=== PATIENT | male | born 1970 | race Caucasian/White ===

== ENCOUNTER 2019-04-06 11:31 | Inpatient (IN) | payer BC ==
[~2019-04-06] VITALS: Ht 190.5 cm; Wt 130.8 kg
[2019-04-06] MEDS ORDERED: DISCOVY (11:48)
[2019-04-06] MEDS ORDERED: DOLU50TA PO (11:48)
[2019-04-06] MEDS ORDERED: APIX5TAB PO (11:48)
[2019-04-06] MEDS ORDERED: CHANTIX (11:48)
[2019-04-06] MEDS ORDERED: VARE1TAB21 PO (11:48)
--- NOTE | 2019-04-06 11:48 | NUR ---
PT TO ED FOR CONSTANT LOWER STERNAL CHEST PAIN AND PRESSURE STARTING 0700. PT HX MULTIPLE DVT AND PE. IV ESTABLISHED EN ROUTE. 324MG ASA AND 1 NITRO TAB ADMINISTERED DIRECTOR SALES WITH NO PAIN RELIEF. PT CONNECTED TO MONITORS. VSS. EKG COMPLETE. DR. BARROSO TO BS FOR ASSESSMENT. AWAITING ORDERS.
[2019-04-06] MEDS ORDERED: MORPHINE SULFATE 4 MG/ML, 1ML ONE (11:54)
--- NOTE | 2019-04-06 11:58 | NUR ---
pt medicated per nov. 2L nc placed for ra sat of 87%. o2 sat recovered to 97%. no needs expressed. call light within reach. xr to bedside. awaiting resutls.
[2019-04-06] MEDS ORDERED: SODIUM CHLORIDE 0.9% 1,000ML IVBOLUS ONE (12:00)
[2019-04-06] MEDS ORDERED: SODIUM CHLORIDE FLUSH 10ML SYR IVF ONE (12:00)
[2019-04-06] MEDS ORDERED: MORPHINE SULFATE 4 MG/ML, 1ML IVPush PRN (12:00)
--- NOTE | 2019-04-06 12:03 | NUR ---
per Sr. Law, ok to take home po meds. otherwise, npo until results are back. pt provided h2o. denies nausea.
[2019-04-06 12:07] LABS: BASOPHILS # (AUTO) 0.03 x10^3/uL (0-0.1); BASOPHILS % (AUTO) 0 % (0-1); EOSINOPHILS # (AUTO) 0.12 x10^3/uL (0-0.4); EOSINOPHILS % (AUTO) 1 % (1-7); LYMPHOCYTES # (AUTO) 2.13 x10^3/uL (1-3.4); LYMPHOCYTES % (AUTO) 15 % (22-44); MD NO; MEAN CORPUSCULAR HEMOGLOBIN 30.4 pg (27.5-34.5); MEAN CORPUSCULAR HGB CONC 33.3 g/dL (33.2-36.2); MEAN CORPUSCULAR VOLUME 91.3 fL (81-97); MEAN PLATELET VOLUME 6.8 fL (7.4-10.4); MONOCYTES # (AUTO) 0.95 x10^3/uL (0.2-0.8); MONOCYTES % (AUTO) 7 % (2-9); NEUTROPHILS # (AUTO) 10.67 x10^3/uL (1.8-6.8); NEUTROPHILS % (AUTO) 77 % (42-75); PLATELET COUNT 314 x10^3/uL (130-400); RED BLOOD COUNT 4.94 x10^6/uL (4.38-5.82)
[2019-04-06 12:17] LABS: INTERNATIONAL NORMALIZED RATIO 1.02 (0.93-1.1); PROTHROMBIN TIME 10.7 Seconds (9.6-11.5)
[2019-04-06 12:19] LABS: ALBUMIN 3.9 g/dL (3.4-5.0); ANION GAP 11 mmol/L (5-15); CALCIUM 8.6 mg/dL (8.5-10.1); CHLORIDE 107 mmol/L (98-107)
[2019-04-06 12:24] LABS: ALANINE AMINOTRANSFERASE 69 U/L (12-78); ALKALINE PHOSPHATASE 41 U/L (45-117); BILIRUBIN,TOTAL 0.7 mg/dL (0.2-1.0); TOTAL PROTEIN 7.7 g/dL (6.4-8.2); TROPONIN I < 0.015 ng/mL (0.000-0.045)
--- NOTE | 2019-04-06 12:38 | NUR ---
PT RESTING IN ROOM. PT STATES NO CHANGE IN CP. VSS. NO NEEDS EXPRESSED. PT TO CT AT THIS TIME.
--- NOTE | 2019-04-06 12:51 | NUR ---
PT UNABLE TO LAY DOWN FOR CT-RN AWARE
[2019-04-06] MEDS ORDERED: HYDROmorphone 1 MG/ML, 1ML VIAL ONE (12:53)
[2019-04-06] MEDS ORDERED: ONDANSETRON 2MG/ML, 2ML ONE (12:53)
--- NOTE | 2019-04-06 12:59 | NUR ---
PT UN ABLE TO TOLERATE LYING FLAT FOR CT. DR. BARROSO AWARE. NEW ORDERS RECEVIED AND MEDICATIONS ADMINISTERED. VSS.
[2019-04-06] MEDS ORDERED: ONDANSETRON 2MG/ML, 2ML IVPush ONE (13:00)
[2019-04-06] MEDS ORDERED: HYDROmorphone 2 MG/ML, 1ML IVPush PRN (13:00)
[2019-04-06] MEDS ORDERED: DIPHENHYDRAMINE 50 MG/ML, 1ML ONE (13:07)
--- NOTE | 2019-04-06 13:20 | NUR ---
pt medicated per nov. pt now states he is able to tolerate lying flat during trials. ct notified and pt to ct at this time.
[2019-04-06] MEDS ORDERED: DIPHENHYDRAMINE 50 MG/ML, 1ML IVPush ONE (13:30)
--- NOTE | 2019-04-06 13:48 | NUR ---
PT RESTING IN ROOM. VSS. US AND CTA COMPLETE. AWAITING RESULTS.
[2019-04-06] MEDS ORDERED: OMNIPAQUE 350 MG/ML, 150 ML BOTTLE ONE (13:53)
[2019-04-06] MEDS ORDERED: KETOROLAC 30 MG/1 ML ONE (14:14)
[2019-04-06] MEDS ORDERED: KETOROLAC 30 MG/1 ML IVPush ONE ×2 (14:30→19:30)
--- NOTE | 2019-04-06 14:32 | NUR ---
PT RESTING IN ROOM. VSS. PLANT O ADMIT. AWAITING ROOM ASSIGNMENT.
[2019-04-06 15:19] VITALS: BP 131/73
[2019-04-06] MEDS ORDERED: EMTR1TAB14 PO (15:52)
[2019-04-06] MEDS ORDERED: SODIUM CHLORIDE 0.9% 1,000 ML IV SCH (17:05)
[2019-04-06 17:22] VITALS: BP 143/87
[2019-04-06] MEDS ORDERED: LORazepam 2 MG/ML, 1ML IVPush PRN (17:30)
[2019-04-06] MEDS ORDERED: NITROGLYCERIN 0.4 MG/SPRAY SL PRN (17:30)
[2019-04-06] MEDS ORDERED: ACETAMINOPHEN 325 MG TABLET PO PRN (17:30)
[2019-04-06] MEDS ORDERED: ONDANSETRON 2MG/ML, 2ML IVPush PRN (17:30)
[2019-04-06] MEDS: morphine SULFATE 10 MG/ML, 1ML IVPush PRN (17:42)
[2019-04-06 17:50] VITALS: BP 132/81
[2019-04-06 17:51] LABS: HCT (SEDRATE) 44.2 % (39.2-51.8)
[2019-04-06] MEDS ORDERED: IBUPROFEN 600 MG TABLET ONE (17:51)
[2019-04-06] MEDS: NITROGLYCERIN 0.4 MG BOTTLE (25 TABS) SL PRN ×2 (17:52→17:58)
[2019-04-06] MEDS ORDERED: IBUPROFEN 200 MG TABLET ONE (17:52)
[2019-04-06] MEDS: IBUPROFEN 200 MG TABLET PO SCH (17:53)
[2019-04-06 17:57] VITALS: BP 124/72
[2019-04-06 17:58] LABS: TROPONIN I < 0.015 ng/mL (0.000-0.045)
[2019-04-06 18:05] VITALS: BP 115/67
[2019-04-06] MEDS ORDERED: HYDROmorphone 1 MG/ML, 1ML INJ IV ONE (18:30)
[2019-04-06 18:38] LABS: AMPHETAMINE SCREEN, URINE Negative (Negative); BARBITURATE SCREEN, URINE Negative (Negative); BENZODIAZEPINE SCREEN, URINE Negative (Negative); CANNABINOID SCREEN, URINE Negative (Negative); COCAINE SCREEN, URINE Negative (Negative); METHADONE SCREEN, URINE Negative (Negative); OPIATE SCREEN, URINE Positive (Negative)
[2019-04-06] MEDS ORDERED: KETOROLAC 30 MG/1 ML IM ONE (19:00)
[2019-04-06 19:32] VITALS: BP 142/82
[2019-04-06] MEDS ORDERED: HYDROmorphone 2 MG/ML, 1ML IV ONE (20:30)
[2019-04-06] MEDS: VARENICLINE 1MG TABLET PO SCH (20:39)
[2019-04-06] MEDS: APIXABAN 5 MG TABLET PO SCH (20:40)
[2019-04-06] MEDS ORDERED: HYDROmorphone 1 MG/ML, 1ML INJ IV PRN (21:00)
[2019-04-06 23:04] LABS: TROPONIN I < 0.015 ng/mL (0.000-0.045)
[2019-04-07 01:44] VITALS: BP 129/80
[2019-04-07 02:05] LABS: MICROSCOPIC AUTO
[2019-04-07 02:06] LABS: CULTURE INDICATED? YES
[2019-04-07] MEDS: HYDROmorphone 2 MG/ML, 1ML IV PRN ×4 (05:20→21:25)
[2019-04-07 05:50] LABS: BASOPHILS # (AUTO) 0.04 x10^3/uL (0-0.1); BASOPHILS % (AUTO) 0 % (0-1); EOSINOPHILS # (AUTO) 0.25 x10^3/uL (0-0.4); EOSINOPHILS % (AUTO) 2 % (1-7); LYMPHOCYTES # (AUTO) 2.73 x10^3/uL (1-3.4); LYMPHOCYTES % (AUTO) 25 % (22-44); MD NO; MEAN CORPUSCULAR HEMOGLOBIN 30.9 pg (27.5-34.5); MEAN CORPUSCULAR HGB CONC 33.2 g/dL (33.2-36.2); MEAN CORPUSCULAR VOLUME 93.1 fL (81-97); MEAN PLATELET VOLUME 7.1 fL (7.4-10.4); MONOCYTES # (AUTO) 1.26 x10^3/uL (0.2-0.8); MONOCYTES % (AUTO) 12 % (2-9); NEUTROPHILS # (AUTO) 6.55 x10^3/uL (1.8-6.8); NEUTROPHILS % (AUTO) 60 % (42-75); PLATELET COUNT 227 x10^3/uL (130-400); RED CELL DISTRIBUTION WIDTH 14.3 % (9.4-14.8)
[2019-04-07 05:58] LABS: ALBUMIN 3.3 g/dL (3.4-5.0); ANION GAP 7 mmol/L (5-15); CHLORIDE 108 mmol/L (98-107)
[2019-04-07 06:10] LABS: ALANINE AMINOTRANSFERASE 47 U/L (12-78); ALKALINE PHOSPHATASE 34 U/L (45-117); BILIRUBIN,TOTAL 0.7 mg/dL (0.2-1.0); CREATININE 0.88 mg/dL (0.7-1.3); TOTAL PROTEIN 6.8 g/dL (6.4-8.2)
[2019-04-07 06:51] VITALS: BP 110/71
[2019-04-07] MEDS ORDERED: EMTRICITABINE/TENOFOV ALAFENAM 200-25 TAB PO SCH (09:00)
[2019-04-07] MEDS ORDERED: DOLUTEGRAVIR 50MG TAB PO SCH (09:00)
[2019-04-07] MEDS: VARENICLINE 1MG TABLET PO SCH ×2 (09:05→21:23)
[2019-04-07] MEDS: IBUPROFEN 200 MG TABLET PO SCH ×3 (09:05→21:25)
[2019-04-07] MEDS: APIXABAN 5 MG TABLET PO SCH ×2 (09:05→21:23)
[2019-04-07] MEDS: DOLUTEGRAVIR 50MG TAB PO SCH (11:37)
[2019-04-07] MEDS: EMTRICITABINE/TENOFOV ALAFENAM 200-25 TAB PO SCH (11:37)
[2019-04-07 14:22] VITALS: BP 124/75
[2019-04-07] MEDS: COLCHICINE 0.6 MG CAPSULE PO SCH ×2 (15:40→21:23)
[2019-04-07 18:46] VITALS: BP 126/72
[2019-04-08] MEDS: morphine SULFATE 10 MG/ML, 1ML IVPush PRN ×2 (03:19→21:50)
[2019-04-08 03:28] VITALS: BP 118/73
[2019-04-08 05:06] LABS: BASOPHILS # (AUTO) 0.04 x10^3/uL (0-0.1); BASOPHILS % (AUTO) 1 % (0-1); EOSINOPHILS % (AUTO) 10 % (1-7); LYMPHOCYTES # (AUTO) 2.65 x10^3/uL (1-3.4); LYMPHOCYTES % (AUTO) 39 % (22-44); MD NO; MEAN CORPUSCULAR HEMOGLOBIN 30.8 pg (27.5-34.5); MEAN CORPUSCULAR HGB CONC 32.8 g/dL (33.2-36.2); MEAN CORPUSCULAR VOLUME 93.8 fL (81-97); MEAN PLATELET VOLUME 7.3 fL (7.4-10.4); MONOCYTES % (AUTO) 10 % (2-9); NEUTROPHILS # (AUTO) 2.78 x10^3/uL (1.8-6.8); NEUTROPHILS % (AUTO) 41 % (42-75); PLATELET COUNT 231 x10^3/uL (130-400); RED BLOOD COUNT 4.24 x10^6/uL (4.38-5.82); RED CELL DISTRIBUTION WIDTH 14.3 % (9.4-14.8)
[2019-04-08 05:10] LABS: ANION GAP 6 mmol/L (5-15); CALCIUM 8.3 mg/dL (8.5-10.1); CHLORIDE 110 mmol/L (98-107)
[2019-04-08 05:11] LABS: CREATININE 0.94 mg/dL (0.7-1.3)
[2019-04-08 06:50] VITALS: BP 112/71
[2019-04-08] MEDS: VARENICLINE 1MG TABLET PO SCH ×2 (07:50→21:49)
[2019-04-08] MEDS: IBUPROFEN 200 MG TABLET PO SCH ×3 (07:50→21:49)
[2019-04-08] MEDS: COLCHICINE 0.6 MG CAPSULE PO SCH ×2 (07:51→21:49)
[2019-04-08] MEDS: APIXABAN 5 MG TABLET PO SCH ×2 (07:51→21:49)
[2019-04-08] MEDS: HYDROmorphone 2 MG/ML, 1ML IV PRN (10:36)
[2019-04-08] MEDS: DOLUTEGRAVIR 50MG TAB PO SCH (11:30)
[2019-04-08] MEDS: EMTRICITABINE/TENOFOV ALAFENAM 200-25 TAB PO SCH (11:30)
[2019-04-08 12:17] VITALS: BP 126/78
[2019-04-08 19:10] VITALS: BP 143/77
[2019-04-09 01:25] VITALS: BP 135/79
[2019-04-09] MEDS: morphine SULFATE 10 MG/ML, 1ML IVPush PRN (06:41)
[2019-04-09 07:08] VITALS: BP 124/80
[2019-04-09] MEDS: APIXABAN 5 MG TABLET PO SCH (08:37)
[2019-04-09] MEDS: VARENICLINE 1MG TABLET PO SCH (08:37)
[2019-04-09] MEDS: IBUPROFEN 200 MG TABLET PO SCH ×2 (08:38→15:54)
[2019-04-09] MEDS: COLCHICINE 0.6 MG CAPSULE PO SCH (08:38)
[2019-04-09] MEDS: DOLUTEGRAVIR 50MG TAB PO SCH (11:30)
[2019-04-09] MEDS: EMTRICITABINE/TENOFOV ALAFENAM 200-25 TAB PO SCH (11:30)
[2019-04-09] MEDS ORDERED: COLC0.6C3 PO (12:06)
[2019-04-09] MEDS ORDERED: IBUP-1221 PO (12:07)
[2019-04-09 12:50] VITALS: BP 137/79
== END 2019-04-09 20:07 | disposition home or self-care (01) | DRG 314 ==
LOC: ED 12:25 → EDIP 15:04 → 5SO 15:18
PROVIDERS: ADMIT Internal Medicine; ATTEND Internal Medicine
PROC: 5A09357 Assistance with Respiratory Ventilation, Less than 24 Consecutive Hours, Continuous Positive Airway Pressure (ICD-10-PCS; principal; 2019-04-07)
PROC: 5A09357 Assistance with Respiratory Ventilation, Less than 24 Consecutive Hours, Continuous Positive Airway Pressure (ICD-10-PCS; 2019-04-08)
DX: I31.9 Disease of pericardium, unspecified (principal); J96.91 Respiratory failure, unspecified with hypoxia; I82.502 Chronic embolism and thrombosis of unspecified deep veins of left lower extremity; D72.829 Elevated white blood cell count, unspecified; G47.33 Obstructive sleep apnea (adult) (pediatric); Z21 Asymptomatic human immunodeficiency virus [HIV] infection status; Z79.01 Long term (current) use of anticoagulants; Z86.711 Personal history of pulmonary embolism; Z87.891 Personal history of nicotine dependence; R00.0 Tachycardia, unspecified
CPT/HCPCS: 36415; 71045; 71275; 80048; 80053; 80307; 81001; 83735; 83880; 84100; 84145; 84443; 84484; 85025; 85610; 85651; 85730; 87086; 87536; 93005; 93306; 93970; 96361; 96374; 96375; 99285; G0378; J1170; J1885; J2405; Q9967; J1200; J2060; J2270; J7030